=== PATIENT | female | born 1935 | race Caucasian/White ===

== ENCOUNTER 2016-09-11 21:55 | Emergency (ER) | payer MEDICARE ==
[2016-09-11] MEDS ORDERED: DIPH,PERTUS(ACELL)TETVAC-LF 0.5 ML VIAL IM ONE (22:38)
--- NOTE | 2016-09-11 22:42 | ED ---
General Adult HPI - General Chief complaint: Extremity Injury, Upper Stated complaint: fall left shoulder injury Time Seen by Provider: 09/11/16 22:28 Source: patient, RN notes reviewed Mode of arrival: ambulatory Limitations: no limitations - History of Present Illness Initial comments: This is a 81-year-old female presents with left shoulder pain after a fall that happened this evening. Patient states she hit her shoulder on a countertop in her home. Patient did not her head or lose consciousness. Patient denies any neck or back pain. Patient is able ambulate without difficulty and patient denies any headache, nausea/vomiting. Patient states the pain is worse with flexion and abduction of the left upper extremity but patient denies any elbow pain. Patient denies any pain with flexion at the left elbow. Patient denies any numbness/weakness or tingling. Patient also has a laceration to the left ring finger. Patient states she caught her finger on a plate when she fell. Patient is not on any anticoagulants. Patient is not up-to-date on her tetanus shot. Patient denies any recent fever, chills, shortness breath, chest pain, abdominal pain, diarrhea, back pain, numbness, tingling, hematuria, or visual changes, or any other complaints. - Related Data Home Medications Medication Instructions Recorded Confirmed Ipratropium-Albuterol Nebulize 3 ml IH QID 07/03/14 07/03/14 [Duoneb 0.5 mg-3 mg/3 ml Soln] Sulfamethox-Tmp 800-160Mg [Bactrim 1 each PO Q12HR 07/03/14 07/03/14 DS 800-160 mg] Tiotropium Braggs [Spiriva] 07/03/14 07/03/14 Previous Rx's Medication Instructions Recorded Budesonide-Formot 160-4.5 Mcg 2 puff INHALATION BID #1 inhaler 07/07/14 [Symbicort 160-4.5 Mcg Inhaler] Nicotine 21Mg/24Hr Patch [Habitrol] 1 patch TRANSDERM DAILY #14 patch 07/07/14 predniSONE 10 mg PO DIRECTED #24 tab 07/07/14 Cephalexin [Keflex] 500 mg PO Q12HR 5 Days 09/11/16 HYDROcodone/APAP 5-325MG [Eden 1 tab PO Q6HR #12 tab 09/11/16 5-325] Allergies Allergy/AdvReac Type Severity Reaction Status Date / Time No Known Allergies Allergy Verified 09/11/16 22:07 Review of Systems ROS Statement: Those systems with pertinent positive or pertinent negative responses have been documented in the HPI. ROS Other: All systems not noted in ROS Statement are negative. Past Medical History Past Medical History: COPD Additional Past Medical History / Comment(s): OTHER HX: CHRONIC BACK PAIN. History of Any Multi-Drug Resistant Organisms: None Reported Past Surgical History: Tonsillectomy, Tubal Ligation Past Anesthesia/Blood Transfusion Reactions: No Reported Reaction Additional Past Anesthesia/Blood Transfusion Reaction / Comment(s): NEVER RECIEVED BLOOD. Past Psychological History: No Psychological Hx Reported Additional Psychological History / Comment(s): PT LIVES IN HER HOME WITH GROWN GRANDDAUGHTER AND GRANDSON AND A STEP-SON. . SHE IS ACTIVE AND BABYSITS OTHER GRANDCHILDREN. 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 Smoking Status: Current every day smoker Past Alcohol Use History: None Reported Past Drug Use History: None Reported - Past Family History Father Additional Family Medical History / Comment(s): FATHER HAD A HEART MURMUR. HE IN HIS MID 60'S. Mother Family Medical History: Congestive Heart Failure (CHF), Dementia, Myocardial Infarction (ND) Additional Family Medical History / Comment(s): MOTHER IN HER MID 60'S. General Exam - General Exam Comments Initial Comments: General: The patient is awake and alert, in no distress, and does not appear acutely ill. Neck: The neck is supple, there is no tenderness or JVD. No cervical midline tenderness. Cardiovascular: There is a regular rate and rhythm. No murmur, rub or gallop is appreciated. Respiratory: Lungs are clear to auscultation, respirations are non-labored, breath sounds are equal. No wheezes, stridor, rales, or rhonchi. Musculoskeletal: There is swelling to the anterior posterior aspects of the left shoulder. There is no tenderness to palpation over the left clavicle or over the left humerus or over the left elbow. Patient is able to flex and extend at the left elbow joint. Patient has limited range of motion in the left shoulder with flexion and abduction of the left upper extremity due to pain. Strength 5/5 and Sensation intact. Radial pulses 2+ bilaterally. Capillary refill is less than 2 seconds. Neurological: A&O x 3. CN II-XII intact, There are no obvious motor or sensory deficits. Coordination appears grossly intact. Speech is normal. Skin: There is an abrasion with skin flap to the pad of the fourth digit of the left hand. Skin is warm and dry and no rashes or lesions are noted. Psychiatric: Normal mood and affect. Limitations: no limitations Course Vital Signs 09/11/16 22:03 Temperature 98.3 F Pulse Rate 103 H Respiratory 20 Rate Blood Pressure 147/74 O2 Sat by Pulse 95 Oximetry Procedures - Procedures Initial comment: The skin was anesthetized with 1% lidocaine. The laceration was then cleansed and irrigated with normal saline. The wound was inspected, and there was no evidence of injury to deep structures. No foreign body was noted in the wound. A total of 7 skin sutures were placed utilizing 5-0 ethilon. Laceration is approx 1.5 cm. patient tolerated procedure well. Medical Decision Making - Medical Decision Making This is a 81-year-old female presents left shoulder pain after fall. Patient also has a laceration to the fourth digit left hand. On physical exam There is swelling to the anterior posterior aspects of the left shoulder. There is no tenderness to palpation over the left clavicle or over the left humerus or over the left elbow. Patient is able to flex and extend at the left elbow joint. Patient has limited range of motion in the left shoulder with flexion and abduction of the left upper extremity due to pain. Strength 5/5 and Sensation intact. Radial pulses 2+ bilaterally. Capillary refill is less than 2 seconds. There is a laceration with skin flap to the pad of the fourth digit of the left hand. patient received a tetanus shot in the today. X-ray left shoulder was done and reviewed showing: #1 acute comminuted avulsion type fracture of greater tuberosity of left humerus. #2 possible old fracture changes in the left glenoid fossa. #3 [id number]-[id number] degenerative changes in the left glenohumeral and left acromioclavicular joint. Report read by Dr. Olvera. The skin was anesthetized with 1% lidocaine. The laceration was then cleansed and irrigated with normal saline. The wound was inspected, and there was no evidence of injury to deep structures. No foreign body was noted in the wound. A total of 7 skin sutures were placed utilizing 5-0 ethilon. Laceration is approx 1.5 cm. patient tolerated procedure well. I discussed that sutures need to be removed in 8-10days. I discussed that rinsing and showering are okay but to avoid submerging the wound in water. I discussed use of topical Neosporin. Please finish entrie course of antibiotics to prevent infection. I discussed rest, ice, elevate, and use sling for support while up. Please stay nonweightbearing to the left upper extremity. Please use Eden as prescribed for pain. Please follow up with orthopedics as soon as possible. I discussed return parameters. Please follow up with PCP in 1-2 days or return to the [facility] for any worsening symptoms or for any further concerns. I discussed return parameters. patient was receptive to this plan and patient will be discharged home. I discussed this case with attending physician Dr. Martins and he agrees with plan as stated above. patient had a ride home from her grandson. Disposition Clinical Impression: Laceration, Fracture, humerus, great tuberosity Disposition: HOME SELF-CARE Condition: Good Instructions: Proximal Humerus Fracture (ED) Additional Instructions: Please have sutures be removed in 8-10days. Rinsing and showering are okay but to avoid submerging the wound in water. May use topical Neosporin. Please finish entrie course of antibiotics to prevent infection. Rest, ice, elevate, and use sling for support while up. Please stay nonweightbearing to the left upper extremity. Please use Eden as prescribed for pain. Please follow up with orthopedics as soon as possible. I discussed return parameters. Please follow up with PCP in 1-2 days or return to the [facility] for any worsening symptoms or for any further concerns. Prescriptions: Cephalexin [Keflex] 500 mg PO Q12HR 5 Days HYDROcodone/APAP 5-325MG [Eden 5-325] 1 tab PO Q6HR #12 tab Referrals: None,Stated [Primary Care Provider] - 1-2 days Dilma Michel MD [STAFF PHYSICIAN] - 1-2 days Octavio Gallegos MD [STAFF PHYSICIAN] - 1-2 days Time of Disposition: 23:19
--- NOTE | 2016-09-11 22:44 | XR ---
EXAMINATION TYPE: XR shoulder complete LT DATE OF EXAM: 09/11/2016 10:27 PM CLINICAL HISTORY: History of fall today left shoulder pain COMPARISON: Chest x-ray 07/03/2014 TECHNIQUE: Three views of the left shoulder are obtained. FINDINGS: There is evidence of acute comminuted slightly displaced avulsion type fracture of greater tuberosity of left proximal humerus. Left glenohumeral joint showed mild degenerative changes without definite acute fracture. There is so mewhat bone density superimposing the left glenohumeral joint in the AP view is probably related to o ld fracture changes. Left acromioclavicular joint showed mild degenerative changes. Surrounding soft tissue swelling is noted.. Visualized lung fuentes and ribs on the left side of the chest appear grossly unremarkable. IMPRESSION: 1. Acute comminuted avulsion-type fracture of greater tuberosity of left humerus. 2. Possible old fracture changes in the left glenoid fossa. 3. Mild to moderate degenerative changes in the left glenohumeral and left acromioclavicular joint.
[2016-09-11] MEDS ORDERED: HYDROcodone/APAP 5-325MG 1 EACH TAB PO STA (23:19)
[2016-09-11 23:39] VITALS: BP 121/73; PULSE 92; RESP 16; TEMP 98.4
== END 2016-09-11 23:38 | disposition home or self-care (01) ==
LOC: EC 21:55
DX: S42.252A Displaced fracture of greater tuberosity of left humerus, initial encounter for closed fracture (principal); S61.215A Laceration without foreign body of left ring finger without damage to nail, initial encounter; J44.9 Chronic obstructive pulmonary disease, unspecified; F17.200 Nicotine dependence, unspecified, uncomplicated; Z23 Encounter for immunization; Z79.899 Other long term (current) drug therapy; W18.00XA Striking against unspecified object with subsequent fall, initial encounter
CPT/HCPCS: 12001; 90471; 90715; 99283

== ENCOUNTER → 2020-01-12 | Outpatient (CLI) | payer MEDICARE ==
[2020-01-12 15:06] LABS: Basophils # (A) 0.1 k/uL (0-0.2); Basophils % (A) 1 %; Eosinophils # (A) 0.2 k/uL (0-0.7); Eosinophils % (A) 3 %; HCT 43.2 % (34.0-46.0); HGB 14.1 gm/dL (11.4-16.0); Lymphocytes # (A) 1.6 k/uL (1.0-4.8); Lymphocytes % (A) 16 %; MCH 30.6 pg (25.0-35.0); MCHC 32.5 g/dL (31.0-37.0); MCV 94.1 fL (80.0-100.0); Mean Platelet Volume 7.7; Monocytes # (A) 0.7 k/uL (0-1.0); Monocytes % (A) 7 %; Neutrophils # (A) 6.9 k/uL (1.3-7.7); Neutrophils % (A) 72 %; Platelet Count 207 k/uL (150-450); RBC 4.59 m/uL (3.80-5.40); RDW 14.5 % (11.5-15.5); WBC 9.7 k/uL (3.8-10.6)
[2020-01-12 18:51] LABS: African American GFR (CKD) 93.5 (60.0-200.0); Albumin 4.5 g/dL (3.80-4.90); Albumin/Globulin Ratio 1.8 (1.60-3.17); Anion Gap 9.7 mmol/L (4.00-12.00); BUN/Creat Ratio 22.86 Ratio (12.00-20.00); Calcium 9.6 mg/dL (8.7-10.3); Carbon Dioxide 28.3 mmol/L (21.6-31.8); Chol/HDL Ratio 2.11; Globulin 2.5 g/dL (1.6-3.3); Non-African American GFR(CKD) 80.7 (60.0-200.0); Potassium 4.6 mmol/L (3.5-5.5); Total Bilirubin 0.5 mg/dL (0.2-1.2)
[2020-01-12 19:00] LABS: T4, Free (Free Thyroxine) 1.3 ng/dL (0.80-1.80)
== END | disposition home or self-care (01) ==
LOC: LABWHC1 13:51
PROVIDERS: ATTEND Internal Medicine Critical Care Medicine
DX: Z00.00 Encounter for general adult medical examination without abnormal findings (principal)
CPT/HCPCS: 36415; 80053; 80061; 82306; 84439; 84443; 85025

== ENCOUNTER → 2020-01-12 | Outpatient (CLI) | payer MEDICARE | END | disposition home or self-care (01) | LOC: LABWHC1 14:47 | PROVIDERS: ATTEND Internal Medicine Critical Care Medicine | DX: Z53.9 Procedure and treatment not carried out, unspecified reason (principal) ==

== ENCOUNTER → 2020-04-28 | Outpatient (CLI) | payer MEDICARE ==
--- NOTE | 2020-04-28 14:56 | BD ---
EXAMINATION TYPE: Axial Bone Density DATE OF EXAM: 04/28/2020 POOR HISTORIAN COMPARISON: 10.14.2014 CLINICAL HISTORY: 84 YR OLD FEMALE.....ICD-10 CODE: M81.0 KNOWN OSTEOPOROSIS Height: 59.2 Weight: 89 FRAX RISK QUESTIONS: Family History (Parent hip fracture): UNKNOWN History of Fracture in Adulthood: YES Current Tobacco Use: YES RISK FACTORS HISTORY OF: HX OF SHOULDER FX, AT AGE 83 History of Wrist Fracture: BOTH WRISTS A YOUTH Diet low in dairy products/other sources of calcium: YES A BIT Postmenopausal woman: NOTHING UNUSUAL, POOR HISTORIAN Lost more than 2 inches in height since high school: YES Frequent falls: YES Poor Health: FRAIL Hyperparathyroidism: UNKNOWN Adrenal Insufficiency: UNKNOWN MEDICATIONS: Prednisone or other steroids: YES, FOR COPD How Long: MANY YRS Osteoporosis Medications: YES, FOSAMAX Additional Medications: REFLUX MEDS, VIT D AND CALCIUM Additional History: REFLUX, BREATHING TROUBLE EXAM MEASUREMENTS: Bone mineral densitometry was performed using the [employer]. Bone mineral density as measured about the Lumbar spine is: ----- L1-L4(G/cm2): 1.395 T Score Values are as follows: ----- L1: 0.3 ----- L2: 2.3 ----- L3: 2.8 ----- L4: 1.7 ----- L1-L4: 1.8 Bone mineral density has: Increased 15.8% since study of: 10.14.2014 Bone mineral density about the R hip (g/cm2): 0.669 Bone mineral density about the L hip (g/cm2): 0.634 T Score values are as follows: -----R Neck: -2.6 -----L Neck: -3.0 -----R Total: -2.7 -----L Total: -3.0 Bone mineral density has: Increased 0.5% since study of: 10.14.2014 FRAX%s: THERE IS A 35.8%CHANCE FOR MAJOR OSTEOPOROTIC FX AND A 22.7% FOR HIP.....PROBABILITY FOR FX IN 10 YRS TIME IMPRESSION: Osteoporosis (T Score less than -2.5). There is increased fracture risk and therapy is usually indicated based on age. Re-Screen 1-2 years. NOTE: T-SCORE=SD OF THE YOUNG ADULT MEAN.
== END | disposition home or self-care (01) ==
LOC: RADBDWWP 12:41
PROVIDERS: ATTEND Internal Medicine Critical Care Medicine
DX: M81.0 Age-related osteoporosis without current pathological fracture (principal)
CPT/HCPCS: 77080

== ENCOUNTER → 2021-10-14 | Outpatient (CLI) | payer MEDICARE ==
[2021-10-14 19:11] LABS: Basophils % (A) 1.3 %; Eosinophils # (A) 0.22 X 10*3/uL (0.04-0.35); Eosinophils % (A) 2.9 %; HGB 12.2 g/dL (12.0-15.0); Immature Grans, Automated 0.4 %; Lymphocytes # (A) 1.39 X 10*3/uL (0.90-5.00); Lymphocytes % (A) 18.1 %; MCH 28.8 pg (27.0-32.0); MCHC 30.5 g/dL (32.0-37.0); MCV 94.3 fL (80.0-97.0); Mean Platelet Volume 10.9 fL (9.5-12.2); Monocytes # (A) 0.88 X 10*3/uL (0.20-1.00); Monocytes % (A) 11.4 %; NRBC Per 100 WBC 0 /100 WBCS (0.0-0.0); Neutrophils # (A) 5.07 X 10*3/uL (1.80-7.70); Neutrophils % (A) 65.9 %; Platelet Count 234 X 10*3/uL (140-440); RBC 4.24 X 10*6/uL (4.10-5.20); RDW 15.5 % (11.5-14.5); WBC 7.69 X 10*3/uL (4.50-10.00)
[2021-10-14 23:30] LABS: ALT 14 U/L (8-44); AST 20 U/L (13-35); African American GFR (CKD) 94.4 (60.0-200.0); Albumin 3.9 g/dL (3.8-4.9); Albumin/Globulin Ratio 1.13 (1.60-3.17); Alkaline Phosphatase 66 U/L (41-126); BUN/Creat Ratio 20.55 Ratio (12.00-20.00); Blood Urea Nitrogen 13.4 mg/dL (9.0-27.0); Calcium 9.4 mg/dL (8.7-10.3); Carbon Dioxide 26.6 mmol/L (20.0-27.5); Chloride 101 mmol/L (96-109); Chol/HDL Ratio 2.33 Ratio; Globulin 3.4 g/dL (1.6-3.3); Glucose 86 mg/dL (70-110); Non-African American GFR(CKD) 81.4 (60.0-200.0); Potassium 4.1 mmol/L (3.5-5.5); Sodium 139 mmol/L (135-145); Total Protein 7.3 g/dL (6.2-8.2); VLDL Calculation 17.82 mg/dL (5.00-40.00)
== END | disposition home or self-care (01) ==
LOC: LABWHC1 12:01
PROVIDERS: ATTEND Internal Medicine Critical Care Medicine
DX: Z00.00 Encounter for general adult medical examination without abnormal findings (principal)
CPT/HCPCS: 36415; 80053; 80061; 82306; 84439; 84443; 85025

== ENCOUNTER → 2022-06-21 | Outpatient (CLI) | payer MEDICARE ==
[2022-06-21 12:03] LABS: African American GFR (CKD) >90 (>60 ml/min/1.73 sqM); Blood Urea Nitrogen 13 mg/dL (7-17); Non-African American GFR(CKD) 80 (>60 ml/min/1.73 sqM)
--- NOTE | 2022-06-21 13:52 | CT ---
EXAMINATION TYPE: CT chest w con DATE OF EXAM: 06/21/2022 COMPARISON: 09/30/2014 HISTORY: Abnormal lung field CT DLP: 199 mGycm Automated exposure control for dose reduction was used. CONTRAST: CT scan of the chest is performed with IV Contrast, patient injected with 100 mL of Isovue 300. FINDINGS: LUNGS: There is a new spiculated mass left upper lobe measuring 3.8 x 2.5 x 3.3 cm with mild pleural extension and compatible with malignancy until proven otherwise. The lungs are free of additional mas s or distinct pulmonary nodule. Hyperinflation compatible with COPD with mild upper lobe emphysematou s change. MEDIASTINUM: Anterior mediastinal nodule measuring 1.4 cm compatible with adenopathy. AP window adeno jarocho measuring 1.2 cm. No additional enlarged lymph node seen. Large fixed hiatal hernia. Thoracic a ankit is of normal caliber. The heart is not enlarged. UPPER ABDOMEN: No significant abnormality appreciated. OTHER: No additional significant abnormality is seen. IMPRESSION: 1. Spiculated left upper lobe mass compatible with malignancy until proven otherwise. Mediastinal jamar nopathy as discussed.
== END | disposition home or self-care (01) ==
LOC: RADCTMAIN 10:58
PROVIDERS: ATTEND Internal Medicine Critical Care Medicine
DX: R91.8 Other nonspecific abnormal finding of lung field (principal); R59.0 Localized enlarged lymph nodes
CPT/HCPCS: 82565; 84520; 71260; 36415; Q9967

== ENCOUNTER 2022-07-13 10:59 | Day surgery (SDC) | payer MEDICARE ==
[2022-07-10 16:10] VITALS: BMI 16.2
[~2022-07-13 10:59] MED LIST: LACTATED RINGERS 1,000 ML IV SCH; LIDOCAINE 1% (10MG/ML) FOR IV START INTRADERMA PRN; LIDOCAINE VISCOUS 300 MG/15 ML CUP MUCOUS MEM ONE; SODIUM CHLORIDE 0.9% 1,000 ML IV SCH
--- NOTE | 2022-07-13 12:30 | CT ---
EXAMINATION TYPE: CT Chest zayra Irizarry Protocol DATE OF EXAM: 07/13/2022 COMPARISON: 06/21/2022 HISTORY: pre bronchial navigation CT DLP: [address] of the chest was performed with lung and mediastinal window settings submitted. The la ck of contrast limits evaluation of the vascular, mediastinal and parenchymal structures including th e upper abdomen. LUNGS: Left upper lobe spiculated mass is again noted and measures 3.5 x 2.4 x 2.8 cm versus previous measurement of 3.8 x 2.5 x 3.3 cm. Mild pleural extension noted. No additional nodules or masses see n. Moderate hyperinflation compatible with COPD. Left apical scarring. MEDIASTINUM/DESI: Thoracic aorta is of normal caliber with limited evaluation given lack of contrast . The heart is not enlarged. No evidence for mediastinal mass. Prevascular space and AP window mary opathy persists. UPPER ABDOMEN: Moderate to large fixed hiatal hernia. OTHER: No significant other abnormality. IMPRESSION: 1. Left upper lobe mass and mediastinal adenopathy as noted.
[2022-07-13] MEDS ORDERED: PROPOFOL 10 MG/ML 20 ML VIAL IV ONE (12:39)
[2022-07-13] MEDS ORDERED: fentaNYL (PF) 50 MCG/ML 2 ML AMP ONE (12:39)
[2022-07-13] MEDS ORDERED: PHENYLEPHRINE-0.9% NACL SYG 1,000 MCG/10 ML SYRINGE ONE (12:39)
[2022-07-13] MEDS ORDERED: SUCCINYLCHOLINE CHLORIDE 200 MG/10 ML VIAL IV ONE (12:39)
--- NOTE | 2022-07-13 13:34 | P.PCN ---
Date of Procedure: 07/13/22 Operative Findings: Preoperative Diagnosis: Left upper lobe lobe mass Postoperative Diagnosis: Left upper lobe mass Procedure(s) Performed: Flexible bronchoscopy navigation bronchoscopy Transbronchial biopsy of the left upper lobe mass, transbronchial brushing of the left upper lobe mass, bronchial lavage of the left upper lobe mass Anesthesia: GETA Operative Findings: Surgeon: Aline Degroot MD Radio Interference Investigator #1: Alejandra Bartlett Estimated Blood Loss (ml): 0 Pathology: other Condition: stable Disposition: same day Operative Findings: the patient is a 64-year-old male with a left upper lobe mass. Patient has advanced COPD with poor baseline performance and functional status. This was done for diagnostic purposes. The patient is scheduled to undergo navigation bronchoscopy. A CAT scan of the chest was done for mapping purposes using the [employer] protocol. The images was uploaded into the system and the left upper mass was identified. Appropriate mapping was done. All of this information was then transferred to a USB and later on into the [employer] navigation tower. After obtaining the consent the patient was taken to the OR suite he was intubated and put on MV by anesthesia then the scope was advanced to the ET tube until the Trachea was seen and it was normal and then the ashley appears normal then the scope advanced to the left main and MELVINA LB1-LB3 were seen and no endobronchial lesions were seen then the scope advanced to the lingula and the LB4 and LB5 were seen and no endobronchial lesions were seen the scope retracted and advanced to the left lower lobes LB6 to LB12 were seen one by one and no endobronchial lesions, then the scope was retracted back to the ashley and advanced to the Right main and RUL RB1 and RB2 and RB3 were seen one by one and no endobronchial lesions were seen the scope then retracted and advanced to the BI and RML RB4 and RB5 were seen and no endobronchial lesions were seen then it was retracted and advanced to the RLL RB6 to RB12 were seen one by one and no endobronchial lesions. Using navigation guidance, the flexible bronchoscope was advanced to the right upper lobe. Transbronchial biopsy of the left upper lobe mass was done in multiple passes were obtained. Following that, performed transbronchial brushing of the left upper lobe mass using a triple brush, and a bronchial lavage of th left upper lobe was also done with total of 80 mL of fluid was infused and 20 mL was aspirated without any major difficulties. The procedure was terminated. The bronchoscope was removed. The patien will be ed and following that the patient was transferred to recovery in a stable condition. No bleeding was encountered.
[2022-07-13 13:49] VITALS: TEMP 97.4
[2022-07-13 14:03] VITALS: RESP 16
[2022-07-13 15:28] VITALS: BP 101/60; PULSE 85
--- NOTE | 2022-07-13 16:16 | XR ---
EXAMINATION TYPE: XR chest 1V portable DATE OF EXAM: 07/13/2022 COMPARISON: Chest CT June 21, 2022 HISTORY: Bronchoscopy with biopsies. TECHNIQUE: Single AP portable frontal upright view of the chest is obtained. FINDINGS: Background chronic emphysematous change with increased left upper lung opacity now identif ied suggesting hemorrhage and/or edema. No pneumothorax seen. Oval mass on recent CT less well seen o n current study. Right lung remains clear. The cardiac silhouette size remains within normal limits. The osseous structures are demineralized. IMPRESSION: As above.
[2022-07-13 19:21] LABS: Appearance,BF Bloody
== END 2022-07-13 15:52 | disposition home or self-care (01) ==
LOC: ORWHC2ENDO 10:59
PROVIDERS: ATTEND Internal Medicine Critical Care Medicine
DX: R91.8 Other nonspecific abnormal finding of lung field (principal); J44.9 Chronic obstructive pulmonary disease, unspecified; M81.0 Age-related osteoporosis without current pathological fracture; K44.9 Diaphragmatic hernia without obstruction or gangrene
CPT/HCPCS: 89050; 87252; 87070; 87205; 87116; 87102; 87206; 71045; 71250; 31625; 31624; 31627; J0330; J3010; J2370; J2704; 87496; 87498; 87502; 87529; 87634; 87798

== ENCOUNTER → 2022-07-15 | Outpatient (CLI) | payer MEDICARE ==
--- NOTE | 2022-07-18 08:42 | PE ---
EXAMINATION TYPE: PET CT fusion skull to thigh DATE OF EXAM: 07/15/2022 COMPARISON: Chest CT June 21, 2022 HISTORY: Solitary pulmonary nodule, abnormal CT. Recent bronchoscopy with sampling. TECHNIQUE: Following the intravenous administration of 11.9 mCi of F-18 FDG, whole body images are p erformed from the skull base to the midthigh. Images are reviewed on the computer in the coronal, ax ial, and sagittal planes. Reconstructed rotating images are created on independent workstation and r eviewed on the computer. A localization and attenuation correction CT is performed in conjunction w ith the PET scan. Blood glucose level equals 88 SCAN: Initial Scan FINDINGS: SKULL BASE AND NECK: No areas of abnormal hypermetabolic uptake. CHEST, MEDIASTINUM, AND HILAR REGION: Background moderate to advanced underlying emphysematous change s are redemonstrated. Persistent posterior left upper lobe spiculated 4.0 x 2.7 cm mass has abnormal hypermetabolic uptake, Max SUV is 6.08 on axial image 61. New areas of groundglass opacity and consol idation with mild hypermetabolic uptake likely reflect areas of hemorrhage and/or inflammation relate d to recent bronchoscopy and sampling. Persistent prominent left paracarinal 2.4 x 1.8 cm lymph node image 70, max SUV is 2.3 to. Mild hyper metabolic uptake in the near 1.0 cm inferior left hilar lymph node axial image 83, max SUV is 3.16 at this level. No additional areas of abnormal hypermetabolic uptake. ABDOMEN AND PELVIS: Patient has little intra-abdominal fat. No adrenal masses. Normal excretion. No a bnormal hypermetabolic uptake. OSSEOUS STRUCTURES: No abnormal hypermetabolic uptake. OTHER CT: Exaggerated curvature to the spine. Grade 1 retrolisthesis L2 on L3, L3 on L4, and L4 on L5 . Severe three-vessel coronary artery calcification. Moderate size hiatal hernia is noted. Moderate to severe calcified plaque of the aorta extends into branch vessels. Scattered pelvic phlebo liths. IMPRESSION: Malignancy posterior inferior left upper lobe with nonspecific anterior left hilar adenop athy. No distal metastatic disease.
== END | disposition home or self-care (01) ==
LOC: RADPETMAIN 11:12
PROVIDERS: ATTEND Internal Medicine Critical Care Medicine
DX: C34.12 Malignant neoplasm of upper lobe, left bronchus or lung (principal); R91.1 Solitary pulmonary nodule; R59.0 Localized enlarged lymph nodes
CPT/HCPCS: 78815; A9552

== ENCOUNTER 2024-11-22 06:35 | Inpatient (IN) | payer MEDICARE ==
[2024-11-22] MEDS: IPRATROPIUM-ALBUTEROL 3 ML NEB INHALATION STA ×2 (06:57→08:57)
--- NOTE | 2024-11-22 06:59 | ED ---
SOB HPI - General Chief Complaint: Shortness of Breath Stated Complaint: KEVIN Time Seen by Provider: 11/22/24 06:58 Source: patient, family (POA), EMS, RN notes reviewed Mode of arrival: EMS Limitations: no limitations - History of Present Illness Initial Comments: 89-year-old female with a past medical history significant of COPD and lung cancer not currently on chemotherapy or radiation presenting to the emergency room via EMS for evaluation of difficulty in breathing. Patient for the past couple of hours she has felt extremely short of breath. Per EMS, patient was tripoding upon their arrival. Family reports patient does not wear nasal cannula oxygen at home. Dr. Degroot recommends home O2 use but patient refuses, per family family reports patient coughs up phlegm very often. Patient does admit to orthopnea and sleeps in a recliner as she cannot breathe when laying down. She denies any peripheral edema. She does admit to exertional dyspnea and dyspnea at rest. Patient is a current everyday smoker smoking approximately 1 pack of cigarettes per day. Patient does state she uses Spiriva at home. Patient did receive albuterol nebulizer in the ambulance. Patient denies any dizziness, lightheadedness, fevers, chills, cough, congestion, chest discomfort or other complaints at this time. Patient couple days ago she did fall as her legs "gave out" given her weakness. Patient denies head injury, loss of consciousness or blood thinner use. Patient denies any dizziness, lightheadedness prior to fall. Family reports the fall was witnessed and denies head injury. - Related Data Home Medications Medication Instructions Recorded Confirmed Ipratropium-Albuterol Nebulize 3 ml INHALATION RT-QID 07/03/14 11/22/24 [Duoneb 0.5 mg-3 mg/3 ml Soln] Previous Rx's Medication Instructions Recorded predniSONE [Deltasone] 40 mg PO DAILY 5 Days #10 tab 11/22/24 Allergies Allergy/AdvReac Type Severity Reaction Status Date / Time No Known Allergies Allergy Verified 11/22/24 09:41 Review of Systems ROS Statement: Those systems with pertinent positive or pertinent negative responses have been documented in the HPI. ROS Other: All systems not noted in ROS Statement are negative. Past Medical History Past Medical History: COPD Additional Past Medical History / Comment(s): OTHER HX: CHRONIC BACK PAIN. History of Any Multi-Drug Resistant Organisms: None Reported Past Surgical History: Tonsillectomy, Tubal Ligation Past Anesthesia/Blood Transfusion Reactions: No Reported Reaction Additional Past Anesthesia/Blood Transfusion Reaction / Comment(s): NEVER RECIEVED BLOOD. Past Psychological History: No Psychological Hx Reported Smoking Status: Current every day smoker Past Alcohol Use History: None Reported Past Drug Use History: None Reported - Past Family History Father Additional Family Medical History / Comment(s): FATHER HAD A HEART MURMUR. HE IN HIS MID 60'S. Mother Family Medical History: Congestive Heart Failure (CHF), Dementia, Myocardial Infarction ([place]) Additional Family Medical History / Comment(s): MOTHER IN HER MID 60'S. General Exam Limitations: no limitations General appearance: alert, in no apparent distress Respiratory exam: Present: wheezes (mild expriatory), accessory muscle use (minor- conservation dyspnea), decreased breath sounds (all lung fuentes) Cardiovascular Exam: Present: regular rate, normal rhythm, normal heart sounds. Absent: systolic murmur, diastolic murmur, rubs, gallop, clicks Extremities exam: Present: normal inspection, full ROM, normal capillary refill. Absent: tenderness, pedal edema, joint swelling, calf tenderness Neurological exam: Present: alert, oriented X3, CN II-XII intact Skin exam: Present: warm, dry, intact, normal color. Absent: rash Course Vital Signs 11/22/24 11/22/24 11/22/24 06:37 06:46 06:53 Temperature 97.1 F L Pulse Rate 94 80 Respiratory 24 24 Rate Blood Pressure 110/85 O2 Sat by Pulse 98 Oximetry 11/22/24 11/22/24 11/22/24 07:03 08:25 08:30 Temperature Pulse Rate 84 Respiratory 20 Rate Blood Pressure O2 Sat by Pulse 95 90 L Oximetry 11/22/24 11/22/24 11/22/24 08:31 08:57 09:07 Temperature Pulse Rate 80 82 Respiratory 18 Rate Blood Pressure O2 Sat by Pulse 94 L Oximetry 11/22/24 11/22/24 11/22/24 10:00 12:05 12:17 Temperature 97.8 F Pulse Rate 76 79 80 Respiratory 16 Rate Blood Pressure 95/59 O2 Sat by Pulse 97 Oximetry - Reevaluation(s) Reevaluation #1: 11/22/24 08:07 Patient reevaluated. No signs of acute distress. 11/22/24 10:44 Case discussed with [facility] physician, Dr. Ribeiro. Discharge concerns discussed, given patient increase shortness of breath and weakness. He accepts observation admission. Medical Decision Making - Medical Decision Making Was pt. sent in by a medical professional or institution (, [facility], [facility], urgent care, hospital, or snf...) When possible be specific @ -No Did you speak to anyone other than the patient for history (EMS, parent, family, police, friend...)? What history was obtained from this source @ -EMS aiding in HPI past medical history. Family at bedside also aidng in HPI. Did you review nursing and triage notes (agree or disagree)? Why? @ -I reviewed and agree with nursing and triage notes Were old charts reviewed (outside hosp., previous admission, EMS record, old EKG, old radiological studies, urgent care reports/EKG's, snf records)? Report findings @ -No old charts were reviewed Differential Diagnosis (chest pain, altered mental status, abdominal pain women, abdominal pain men, vaginal bleeding, weakness, fever, dyspnea, syncope, headache, dizziness, GI bleed, back pain, seizure, CVA, palpatations, mental health, musculoskeletal)? @ -Differential Dyspnea: Coronary syndrome, arrhythmia, tamponade, asthma, COPD, pulmonary embolism, pneumonia, pneumothorax, pulmonary effusion, anaphylaxis, diabetic ketoacidosis, flailed chest, pulmonary contusion, diaphragmatic rupture, anemia, neuromuscular, this is not meant to be an all- inclusive list. EKG interpreted by me (3pts min.). @ -As above X-rays interpreted by me (1pt min.). @ -CXR showing left upper lobe mass. Recommending CT. CT interpreted by me (1pt min.). @ -CT angio chest showed left upper lobe mass suspicious of neoplasm. No acute pulmonary embolism U/S interpreted by me (1pt. min.). @ -None done What testing was considered but not performed or refused? (CT, X-rays, U/S, labs)? Why? @ -None What meds were considered but not given or refused? Why? @ -None Did you discuss the management of the patient with other professionals (professionals i.e. , [facility], [facility], lab, RT, psych nurse, licensed clinical social worker, barrel reamer, teacher, college service officer, casework supervisor)? Give summary @ -Yes, case discussed with [facility] physician, Dr. Ribeiro for admission. Was smoking cessation discussed for >3mins.? @ -No Was critical care preformed (if so, how long)? @ -No Were there social determinants of health that impacted care today? How? (Homelessness, low income, unemployed, alcoholism, drug addiction, transport ation, low edu. Level, literacy, decrease access to med. care, residential, rehab)? @ -No Was there de-escalation of care discussed even if they declined (Discuss DNR or withdrawal of care, Hospice)? DNR status @ -No What co-morbidities impacted this encounter? (DM, HTN, Smoking, COPD, CAD, Cancer, CVA, ARF, Chemo, Hep., AIDS, mental health diagnosis, sleep apnea, morbid obesity)? @ -Lung cancer, COPD, dementia Was patient admitted / discharged? Hospital course, mention meds given and route, prescriptions, significant lab abnormalities, going to OR and other pertinent info. @ -Admitted. 89-year-old female presented the ER via EMS for evaluation of shortness of breath. Upon rooming, patient experiencing conversational dyspnea and accessory muscle use. Patient is oxygen saturation 98% on 3 L nasal cannula oxygen. Vitals otherwise acceptable limits. Patient does not typically wear nasal cannula oxygen at home. Laboratory studies unimpressive. Troponin undetectable. BNP 859. Urinalysis with no evidence of infection. Influenza, RSV and COVID-negative. CT angio chest showed no acute evidence of pulmonary embolism. There is a left upper lung mass noted concerning of neoplasm. Patient has known lung cancer and is not currently undergoing chemotherapy or radiation. Patient given nebulizer treatments and started on p.o. prednisone. Patient was attempted to be ambulated in the emergency department and continued complaining of worsening shortness of breath with movement. Admission was considered and discussed at that time for observation of COPD exacerbation. is was accepted by [facility] physician, Dr. Ribeiro. Pulmonology on consult. Patient and patient's family agreeable for admission. Case discussed with ED attending, Dr. Martins. Undiagnosed new problem with uncertain prognosis? @ -No Drug Therapy requiring intensive monitoring for toxicity (Heparin, Nitro, Insulin, Cardizem)? @ -No Were any procedures done? @ -No Diagnosis/symptom? @ -COPD exacerbation Acute, or Chronic, or Acute on Chronic? @ -Acute Uncomplicated (without systemic symptoms) or Complicated (systemic symptoms)? @ -Complicated Side effects of treatment? @ -No Exacerbation, Progression, or Severe Exacerbation? @ -No Poses a threat to life or bodily function? How? (Chest pain, [place], NH, pneumonia, PE, COPD, DKA, ARF, appy, cholecystitis, CVA, Diverticulitis, Homicidal, Suicidal, threat to staff... and all critical care pts) @ -yes patient has cancer. - Lab Data Result diagrams: 11/22/24 06:54 11/22/24 06:54 Lab Results 11/22/24 11/22/24 11/22/24 Range/Units 06:54 06:54 06:54 WBC 7.86 (4.50-10.00) 10*3/uL RBC 4.63 (4.10-5.20) 10*6/uL Hgb 12.6 (12.0-15.0) g/dL Hct 38.9 (37.2-46.3) % MCV 84.0 (80.0-97.0) fL MCH 27.2 (27.0-32.0) pg MCHC 32.4 (32.0-37.0) g/dL Plt Count 245 (140-440) 10*3/uL MPV 9.7 (9.5-12.2) fL Immature Gran % (Auto) 0.3 % Neutrophils % 70.3 % Lymphocytes % 15.4 % Monocytes % 9.5 % Eosinophils % 3.2 % Basophils % 1.3 % Immature Gran # 0.02 (0.00-0.04) 10*3/uL Neutrophils # 5.53 (1.80-7.70) 10*3/uL Lymphocytes # 1.21 (0.90-5.00) 10*3/uL Monocytes # 0.75 (0.20-1.00) 10*3/uL Eosinophils # 0.25 (0.04-0.35) 10*3/uL Basophils # 0.10 (0.00-0.10) 10*3/uL PT 10.3 (10.0-12.5) sec INR 0.9 (<1.2) APTT 24.6 (22.0-30.0) sec Sodium (137-145) mmol/L Potassium (3.5-5.1) mmol/L Chloride (98-107) mmol/L Carbon Dioxide (22-30) mmol/L Anion Gap mmol/L BUN (7-17) mg/dL Creatinine (0.52-1.04) mg/dL Est GFR (CKD-EPI)AfAm (>60 ml/min/1.73 sqM) Est GFR (CKD-EPI)NonAf (>60 ml/min/1.73 sqM) Glucose (74-99) mg/dL Plasma Lactic Acid Jose (0.7-2.0) mmol/L Calcium (8.4-10.2) mg/dL Magnesium (1.6-2.3) mg/dL Total Bilirubin (0.2-1.3) mg/dL AST (14-36) U/L ALT (4-34) U/L Alkaline Phosphatase (38-126) U/L Troponin I (0.000-0.034) ng/mL NT-Pro-B Natriuret Pep pg/mL Total Protein (6.3-8.2) g/dL Albumin (3.5-5.0) g/dL Urine Color Colorless Urine Appearance Clear (Clear) Urine pH 6.5 (5.0-8.0) Ur Specific Thayer 1.013 (1.001-1.035) Urine Protein Negative (Negative) Urine Glucose (UA) Negative (Negative) Urine Ketones Negative (Negative) Urine Blood Negative (Negative) Urine Nitrite Negative (Negative) Urine Bilirubin Negative (Negative) Urine Urobilinogen <2.0 (<2.0) mg/dL Ur Leukocyte Esterase Moderate H (Negative) Urine RBC 1 (0-5) /hpf Urine WBC 7 H (0-5) /hpf Ur Squamous Epith Cells <1 (0-4) /hpf Urine Bacteria Rare H (None) /hpf Urine Mucus Rare H (None) /hpf Influenza Type A (PCR) (Not Detectd) Influenza Type B (PCR) (Not Detectd) RSV (PCR) (Not Detectd) SARS-CoV-2 (PCR) (Not Detectd) 11/22/24 11/22/24 11/22/24 Range/Units 06:54 06:54 06:54 WBC (4.50-10.00) 10*3/uL RBC (4.10-5.20) 10*6/uL Hgb (12.0-15.0) g/dL Hct (37.2-46.3) % MCV (80.0-97.0) fL MCH (27.0-32.0) pg MCHC (32.0-37.0) g/dL Plt Count (140-440) 10*3/uL MPV (9.5-12.2) fL Immature Gran % (Auto) % Neutrophils % % Lymphocytes % % Monocytes % % Eosinophils % % Basophils % % Immature Gran # (0.00-0.04) 10*3/uL Neutrophils # (1.80-7.70) 10*3/uL Lymphocytes # (0.90-5.00) 10*3/uL Monocytes # (0.20-1.00) 10*3/uL Eosinophils # (0.04-0.35) 10*3/uL Basophils # (0.00-0.10) 10*3/uL PT (10.0-12.5) sec INR (<1.2) APTT (22.0-30.0) sec Sodium 132 L (137-145) mmol/L Potassium 4.3 (3.5-5.1) mmol/L Chloride 97 L (98-107) mmol/L Carbon Dioxide 29 (22-30) mmol/L Anion Gap 6 mmol/L BUN 13 (7-17) mg/dL Creatinine 0.53 (0.52-1.04) mg/dL Est GFR (CKD-EPI)AfAm >90 (>60 ml/min/1.73 sqM) Est GFR (CKD-EPI)NonAf 86 (>60 ml/min/1.73 sqM) Glucose 99 (74-99) mg/dL Plasma Lactic Acid Jose 1.2 (0.7-2.0) mmol/L Calcium 9.2 (8.4-10.2) mg/dL Magnesium 1.9 (1.6-2.3) mg/dL Total Bilirubin 0.5 (0.2-1.3) mg/dL AST 23 (14-36) U/L ALT 11 (4-34) U/L Alkaline Phosphatase 57 (38-126) U/L Troponin I <0.012 (0.000-0.034) ng/mL NT-Pro-B Natriuret Pep 859 pg/mL Total Protein 6.7 (6.3-8.2) g/dL Albumin 3.7 (3.5-5.0) g/dL Urine Color Urine Appearance (Clear) Urine pH (5.0-8.0) Ur Specific Thayer (1.001-1.035) Urine Protein (Negative) Urine Glucose (UA) (Negative) Urine Ketones (Negative) Urine Blood (Negative) Urine Nitrite (Negative) Urine Bilirubin (Negative) Urine Urobilinogen (<2.0) mg/dL Ur Leukocyte Esterase (Negative) Urine RBC (0-5) /hpf Urine WBC (0-5) /hpf Ur Squamous Epith Cells (0-4) /hpf Urine Bacteria (None) /hpf Urine Mucus (None) /hpf Influenza Type A (PCR) (Not Detectd) Influenza Type B (PCR) (Not Detectd) RSV (PCR) (Not Detectd) SARS-CoV-2 (PCR) (Not Detectd) 11/22/24 Range/Units 07:55 WBC (4.50-10.00) 10*3/uL RBC (4.10-5.20) 10*6/uL Hgb (12.0-15.0) g/dL Hct (37.2-46.3) % MCV (80.0-97.0) fL MCH (27.0-32.0) pg MCHC (32.0-37.0) g/dL Plt Count (140-440) 10*3/uL MPV (9.5-12.2) fL Immature Gran % (Auto) % Neutrophils % % Lymphocytes % % Monocytes % % Eosinophils % % Basophils % % Immature Gran # (0.00-0.04) 10*3/uL Neutrophils # (1.80-7.70) 10*3/uL Lymphocytes # (0.90-5.00) 10*3/uL Monocytes # (0.20-1.00) 10*3/uL Eosinophils # (0.04-0.35) 10*3/uL Basophils # (0.00-0.10) 10*3/uL PT (10.0-12.5) sec INR (<1.2) APTT (22.0-30.0) sec Sodium (137-145) mmol/L Potassium (3.5-5.1) mmol/L Chloride (98-107) mmol/L Carbon Dioxide (22-30) mmol/L Anion Gap mmol/L BUN (7-17) mg/dL Creatinine (0.52-1.04) mg/dL Est GFR (CKD-EPI)AfAm (>60 ml/min/1.73 sqM) Est GFR (CKD-EPI)NonAf (>60 ml/min/1.73 sqM) Glucose (74-99) mg/dL Plasma Lactic Acid Jose (0.7-2.0) mmol/L Calcium (8.4-10.2) mg/dL Magnesium (1.6-2.3) mg/dL Total Bilirubin (0.2-1.3) mg/dL AST (14-36) U/L ALT (4-34) U/L Alkaline Phosphatase (38-126) U/L Troponin I (0.000-0.034) ng/mL NT-Pro-B Natriuret Pep pg/mL Total Protein (6.3-8.2) g/dL Albumin (3.5-5.0) g/dL Urine Color Urine Appearance (Clear) Urine pH (5.0-8.0) Ur Specific Thayer (1.001-1.035) Urine Protein (Negative) Urine Glucose (UA) (Negative) Urine Ketones (Negative) Urine Blood (Negative) Urine Nitrite (Negative) Urine Bilirubin (Negative) Urine Urobilinogen (<2.0) mg/dL Ur Leukocyte Esterase (Negative) Urine RBC (0-5) /hpf Urine WBC (0-5) /hpf Ur Squamous Epith Cells (0-4) /hpf Urine Bacteria (None) /hpf Urine Mucus (None) /hpf Influenza Type A (PCR) Not Detected (Not Detectd) Influenza Type B (PCR) Not Detected (Not Detectd) RSV (PCR) Not Detected (Not Detectd) SARS-CoV-2 (PCR) Not Detected (Not Detectd) - EKG Data -: EKG Interpreted by Me EKG Comments: EKG taken at 6: 49 showing a sinus rhythm. Artifact present. Ventricular rate 86, WA interval 111, QRS duration at 69, QT/QTc 357/400 - Radiology Data Radiology results: report reviewed, image reviewed Disposition Clinical Impression: COPD exacerbation Disposition: ADMITTED IP TO THIS HOSP Condition: Stable Is patient prescribed a controlled substance at d/c from ED?: No Time of Disposition: 10:45
[2024-11-22] MEDS: predniSONE 20 MG TAB PO STA (07:01)
[2024-11-22 07:29] LABS: Basophils % (A) 1.3 %; Eosinophils # (A) 0.25 10*3/uL (0.04-0.35); Eosinophils % (A) 3.2 %; HCT 38.9 % (37.2-46.3); HGB 12.6 g/dL (12.0-15.0); Lymphocytes # (A) 1.21 10*3/uL (0.90-5.00); Lymphocytes % (A) 15.4 %; MCH 27.2 pg (27.0-32.0); MCHC 32.4 g/dL (32.0-37.0); Mean Platelet Volume 9.7 fL (9.5-12.2); Monocytes # (A) 0.75 10*3/uL (0.20-1.00); Monocytes % (A) 9.5 %; Neutrophils # (A) 5.53 10*3/uL (1.80-7.70); Neutrophils % (A) 70.3 %; Platelet Count 245 10*3/uL (140-440); RBC 4.63 10*6/uL (4.10-5.20); RDW 15.9 % (11.5-14.5); WBC 7.86 10*3/uL (4.50-10.00)
[2024-11-22 07:33] LABS: INR 0.9 (<1.2); Partial Thromboplastin Time 24.6 sec (22.0-30.0); Prothrombin Time 10.3 sec (10.0-12.5)
--- NOTE | 2024-11-22 08:02 | XR ---
EXAMINATION TYPE: XR chest 2V DATE OF EXAM: 11/22/2024 7:21 AM COMPARISON: 01/14/2024 CLINICAL INDICATION: Female, 89 years old with history of difficulty breathing, TECHNIQUE: XR chest 2V view(s) obtained. FINDINGS: The heart size is normal. The pulmonary vasculature is normal. Left upper lobe mass measures 5.4 x 7.6 cm. Additional workup with CT is recommended.. Small hiatal hernia may be present. There is a radiopaque foreign body overlying the epigastric region. Mild scoliosis is present. IMPRESSION: 1. Left upper lobe mass. Additional workup with contrast CT is recommended [facility], , 11/22/2024 8:00 AM
[2024-11-22 08:07] LABS: ALT 11 U/L (4-34); AST 23 U/L (14-36); African American GFR (CKD) >90 (>60 ml/min/1.73 sqM); Albumin 3.7 g/dL (3.5-5.0); Alkaline Phosphatase 57 U/L (38-126); Anion Gap 6 mmol/L; Blood Urea Nitrogen 13 mg/dL (7-17); Calcium 9.2 mg/dL (8.4-10.2); Carbon Dioxide 29 mmol/L (22-30); Chloride 97 mmol/L (98-107); Glucose 99 mg/dL (74-99); Magnesium 1.9 mg/dL (1.6-2.3); Non-African American GFR(CKD) 86 (>60 ml/min/1.73 sqM); Potassium 4.3 mmol/L (3.5-5.1); Sodium 132 mmol/L (137-145); Total Bilirubin 0.5 mg/dL (0.2-1.3); Total Protein 6.7 g/dL (6.3-8.2)
[2024-11-22 08:08] LABS: Appearance,Urine Clear (Clear); Bacteria,Urine Rare /hpf; Bilirubin,Urine Negative (Negative); Blood,Urine Negative (Negative); Color,Urine Colorless; Glucose,Urine (UA) Negative (Negative); Ketones,Urine Negative (Negative); Leukocyte Esterase,Urine Moderate (Negative); Mucus,Urine Rare /hpf; Nitrite,Urine Negative (Negative); PH, Urine 6.5 (5.0-8.0); Protein,Urine Negative (Negative); RBC,Urine 1 /hpf (0-5); Specific Gravity,Urine 1.013 (1.001-1.035); Squamous Epithelial Cell,Urine <1 /hpf (0-4); Urobilinogen,Urine <2.0 mg/dL (<2.0); WBC,Urine 7 /hpf (0-5)
[2024-11-22 08:14] LABS: NT-Pro-B-Type Natriuretic Pept 859 pg/mL
[2024-11-22 08:42] LABS: Influenza A Not Detected (Not Detectd); Influenza B Not Detected (Not Detectd); RSV Not Detected (Not Detectd)
[2024-11-22] MEDS: DIPH,PERTUS(ACELL)TETVAC-LF 0.5 ML VIAL IM ONE (08:42)
--- NOTE | 2024-11-22 08:56 | CT ---
EXAMINATION TYPE: CT angio chest DATE OF EXAM: 11/22/2024 8:26 AM COMPARISON: None. CLINICAL INDICATION: Female, 89 years old with history of lung mass/sob, sob/lung mass, TECHNIQUE: CT of the chest is performed on a spiral scan at 2 mm thick sections. Study is performed with intravenous contrast timed for evaluation for pulmonary embolism. This will limit additional po rtions of the evaluation. 10mm MIP images reconstructed by the technologist are reviewed on the comp uter in the coronal and sagittal planes. Contrast used:60 mL of Isovue 370 with IV Contrast, (none if empty) Oral contrast used: (none if empty) CT DLP: 187.2 mGycm, Automated exposure control for dose reduction was used. FINDINGS: No persistent filling defects are evident to suggest an acute pulmonary embolism. There is some mild reflux of contrast into the distal inferior vena cava. Moderate emphysematous changes are present No mediastinal or hilar adenopathy enlarged by CT criteria is evident. The ascending aorta diameter at the level of the main pulmonary artery is 3.1 cm. The main pulmonary artery diameter at the bifurcation is 3.0 cm. Hiatal hernia is present There is a 4.3 x 4.2 cm mass in the left peripheral upper outer lung field. This extends to the hilum . No suspicious hilar or mediastinal nodes evident. There may be a subtle nodule within the anterolateral right lung measuring 0.5 cm. Image 42 No significant coronary artery calcifications. Limited CT sections were through the upper abdomen. Upper abdomen appears unremarkable. IMPRESSION: 1. Left upper lobe mass suspicious for neoplasm. Additional workup recommended. 2. No acute pulmonary embolism [facility], , 11/22/2024 8:54 AM
[2024-11-22] MEDS ORDERED: NALOXONE 0.4 MG/ML 1 ML VIAL IV PRN (10:39)
[2024-11-22] MEDS: IPRATROPIUM-ALBUTEROL 3 ML NEB INHALATION SCH (12:05)
--- NOTE | 2024-11-22 12:19 | P.HPIM ---
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 EMS was called, per chart review, patient was tripoding upon their arrival. Patient started feeling the symptoms several hours before arrival, she does have chronic cough with phlegm production, denies recent chills, fevers, chest pain. Also reported that her legs were giving out over the past several days, syncope. She had a fall without head trauma 2 days ago, was assisted to the floor. Family states that patient was able to ambulate, started using walker that was brought by friend On arrival she was afebrile with heart rate in 70s, BP soft 95/59, SpO2 90 on room air, was placed on 2 L nasal cannula with improvement up to 97%. Lab work significant for unremarkable CBC, coagulation panel, sodium low 132, normal potassium, creatinine, bicarb, liver enzymes, troponin negative, age- adjusted BNP negative, UA was obtained and was negative for UTI, Cepheid negative. Chest x-ray showed sinus rhythm QTc 400, no ST elevation. Chest x-ray reviewed personally, there was a left upper lobe mass noted. CT chest performed and showed no mediastinal and hilar adenopathy, 4.3 x 4.2 cm mass in the left. Referral upper outer lung field extending to the helium. Patient will be admitted for observation, hypoxic respiratory failure secondary to COPD, pulmonology consulted. Pertinent positives and negatives as discussed in HPI, a complete review of s ystems was performed and all other systems are negative. Patient seen and examined at bedside. Vital signs reviewed General: Not in distress, no conversational dyspnea or accessory muscle use, appears underweight Derm: warm, dry Head: atraumatic, normocephalic, symmetric Eyes: EOMI, no lid lag, anicteric sclera, pupils equal round reactive to light ENT: Nose and ears atraumatic Neck: No thyromegaly, supple Mouth: no lip lesion, mucus membranes moist Cardiovascular: S1S2 reg, no murmur, no edema Lungs: Bilateral wheezing Abdominal: soft, nontender to palpation, no guarding, no appreciable o rganomegaly Ext: no gross muscle atrophy, muscle strength muscle strength 5 out of 5 in all 4 extremities, no contractures Neuro: CN II-XII grossly intact, legally blind Psych: Alert, oriented, appropriate affect Assessment/Plan: Acute hypoxic respiratory failure secondary to COPD exacerbation Left upper lobe mass in a patient with history of known lung who declines treatmenth -Pulmonology consulted, patient recommendations -Continue with supplemental oxygen, wean off as tolerated -Will reassess need for home oxygen -Continue Solu-Medrol 40 mg IV every 8 hours -Scheduled DuoNebs every 6 hours -PT OT -Readdress goals of care discussion should patient's condition remains unchanged on current treatment Current smoker: Used to smoke 1 and half pack a day, currently 1 pack a day, recommend smoking cessation Alzheimer's Legally blind The patient is admitted with an anticipated [less than 2 midnight stay as observation status for evaluation of hypoxic respiratory failure secondary to C OPD. CODE STATUS: No code DVT prophylaxis: Lovenox Anticipated discharge date: TBD Anticipated discharge place: [facility] A total of 40 minutes was spent on the care of this complex patient more than 50% of the time was spent in counseling and care coordination. Past Medical History Past Medical History: COPD Additional Past Medical History / Comment(s): OTHER HX: CHRONIC BACK PAIN. History of Any Multi-Drug Resistant Organisms: None Reported Past Surgical History: Tonsillectomy, Tubal Ligation Past Anesthesia/Blood Transfusion Reactions: No Reported Reaction Additional Past Anesthesia/Blood Transfusion Reaction / Comment(s): NEVER RECIEVED BLOOD. Past Psychological History: No Psychological Hx Reported Smoking Status: Current every day smoker Past Alcohol Use History: None Reported Past Drug Use History: None Reported - Past Family History Father Additional Family Medical History / Comment(s): FATHER HAD A HEART MURMUR. HE IN HIS MID 60'S. Mother Family Medical History: Congestive Heart Failure (CHF), Dementia, Myocardial Infarction ([place]) Additional Family Medical History / Comment(s): MOTHER IN HER MID 60'S. Medications and Allergies Home Medications Medication Instructions Recorded Confirmed Type Ipratropium-Albuterol Nebulize 3 ml INHALATION RT-QID 07/03/14 11/22/24 History [Duoneb 0.5 mg-3 mg/3 ml Soln] predniSONE [Deltasone] 40 mg PO DAILY 5 Days #10 tab 11/22/24 Rx Allergies Allergy/AdvReac Type Severity Reaction Status Date / Time No Known Allergies Allergy Verified 11/22/24 09:41 Physical Exam Vitals: Vital Signs Temp Pulse Resp BP Pulse Ox 11/22/24 10:00 97.8 F 76 16 95/59 97 11/22/24 09:07 82 11/22/24 08:57 80 11/22/24 08:31 18 94 L 11/22/24 08:30 90 L 11/22/24 08:25 20 95 11/22/24 07:03 84 11/22/24 06:53 80 11/22/24 06:46 24 11/22/24 06:37 97.1 F L 94 24 110/85 98 Intake and Output 11/21/24 11/22/24 11/22/24 22:59 06:59 14:59 Other: Weight 47.627 kg Results CBC & Chem 7: 11/22/24 06:54 11/22/24 06:54 Labs: Abnormal Lab Results - Last 24 Hours (Table) 11/22/24 11/22/24 Range/Units 06:54 06:54 Sodium 132 L (137-145) mmol/L Chloride 97 L (98-107) mmol/L Ur Leukocyte Esterase Moderate H (Negative) Urine WBC 7 H (0-5) /hpf Urine Bacteria Rare H (None) /hpf Urine Mucus Rare H (None) /hpf
[2024-11-22] MEDS: SODIUM CHLORIDE 0.9% 1,000 ML IV SCH (13:08)
--- NOTE | 2024-11-22 14:10 | P.CNPUL ---
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 She was brought into the emergency room early this morning after waking up feeling very short of breath, weak and had recently been sustaining falls at home. Stating that her legs give out. Chest x-ray reveals a 5.4 x 7.6 cm left upper lobe mass. CT angiogram reveals the same mass in the left peripheral upper outer lung field. This extends to the hilum. No suspicious hilar mediastinal nodes evident. No acute pulmonary embolism. Count 7.8. Hemoglobin 12.6. Platelets 245. Sodium 132. Potassium 4.3. Bicarb 29. BUN 13. Creatinine 0.53. Glucose 99. Troponin negative x 1. proBNP 859. Urinalysis clean. Viral screen negative. She is seen today in consultation in the emergency department. She is currently resting on a stretcher. She is very frail and cachectic appearing. She is maintaining O2 saturations in the upper 90s on 2 L/min per nasal cannula. She is afebrile. Hemodynamically stable. Her daughter is at the bedside providing most of the information. Review of Systems REVIEW OF SYSTEMS: CONSTITUTIONAL: Positive for generalized weakness, falls. Denies any recent significant weight loss or weight gain. EYES: Denies change in vision. EARS, NOSE, MOUTH, THROAT: Denies headaches, denies sore throat. CARDIOVASCULAR: Denies chest pain, palpitations or syncopal episodes. RESPIRATORY: Positive for shortness of breath, no cough, congestion or hemoptysis. GASTROINTESTINAL: Denies change in appetite, denies abdominal pain GENITOURINARY: Denies hematuria, denies infections. MUSKULOSKELETAL: Denies pain, denies swelling. INTEGUMENTARY: Denies rash, denies eczema. NEUROLOGICAL: Denies recent memory loss, no recent seizure activity. PSYCHIATRIC: Denies anxiety, denies depression. HEMATOLOGIC/LYMPHATIC: Denies anemia, denies enlarged lymph nodes. Past Medical History Past Medical History: COPD Additional Past Medical History / Comment(s): OTHER HX: CHRONIC BACK PAIN. History of Any Multi-Drug Resistant Organisms: None Reported Past Surgical History: Tonsillectomy, Tubal Ligation Past Anesthesia/Blood Transfusion Reactions: No Reported Reaction Additional Past Anesthesia/Blood Transfusion Reaction / Comment(s): NEVER RECIEVED BLOOD. Past Psychological History: No Psychological Hx Reported Smoking Status: Current every day smoker Past Alcohol Use History: None Reported Past Drug Use History: None Reported - Past Family History Father Additional Family Medical History / Comment(s): FATHER HAD A HEART MURMUR. HE IN HIS MID 60'S. Mother Family Medical History: Congestive Heart Failure (CHF), Dementia, Myocardial Infarction (CO) Additional Family Medical History / Comment(s): MOTHER IN HER MID 60'S. Medications and Allergies Home Medications Medication Instructions Recorded Confirmed Type Ipratropium-Albuterol Nebulize 3 ml INHALATION RT-QID 07/03/14 11/22/24 History [Duoneb 0.5 mg-3 mg/3 ml Soln] predniSONE [Deltasone] 40 mg PO DAILY 5 Days #10 tab 11/22/24 Rx Allergies Allergy/AdvReac Type Severity Reaction Status Date / Time No Known Allergies Allergy Verified 11/22/24 09:41 Physical Exam Vitals: Vital Signs Temp Pulse Resp BP Pulse Ox 11/22/24 12:17 80 11/22/24 12:05 79 11/22/24 10:00 97.8 F 76 16 95/59 97 11/22/24 09:07 82 11/22/24 08:57 80 11/22/24 08:31 18 94 L 11/22/24 08:30 90 L 11/22/24 08:25 20 95 11/22/24 07:03 84 11/22/24 06:53 80 11/22/24 06:46 24 11/22/24 06:37 97.1 F L 94 24 110/85 98 Intake and Output 11/21/24 11/22/24 11/22/24 22:59 06:59 14:59 Other: Weight 47.627 kg GENERAL EXAM: Alert, weak, frail thin 89-year-old female, on 2 L nasal cannula, fairly comfortable in no apparent distress. HEAD: Normocephalic. EYES: Normal reaction of pupils, equal size. NOSE: Clear with pink turbinates. THROAT: No erythema or exudates. NECK: No masses, no JVD. CHEST: No chest wall deformity. LUNGS: Equal air entry with no crackles, wheeze, rhonchi or dullness. CVS: S1 and S2 normal with no audible murmur, regular rhythm. ABDOMEN: No hepatosplenomegaly, normal bowel sounds, no guarding or rigidity. SPINE: No scoliosis or deformity SKIN: No rashes CENTRAL NERVOUS SYSTEM: No focal deficits, tone is normal in all 4 extremities. EXTREMITIES: There is no peripheral edema. No clubbing, no cyanosis. Peripheral pulses are intact. 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 Patient had declined any treatment Chronic and ongoing tobacco dependence for nearly 60 years Osteoporosis Anorexia/cachexia syndrome, current BMI 19.8 kg/m Legally blind Plan: The patient was seen and evaluated Imaging, labs and medications reviewed Currently stable on 2 L nasal cannula Initiate DuoNeb inhalations Initiate Symbicort Initiate Solu-Medrol Lovenox for DVT prophylaxis Normal saline at 50 mL/h Prognosis remains poor DNR CODE STATUS Plan of care was discussed with the patient and her daughter who is at the bedside We will continue to follow and make further recommendations based on her clinical status I have personally seen and examined the patient, performed the documentation and the assessment and plan as written. Number of minutes spent on the visit: 20 Dictation was produced using [id number] software. Please excuse any grammatical, word or spelling errors. Time with Patient: Greater than 30
--- NOTE | 2024-11-22 15:08 | CT ---
EXAMINATION TYPE: CT brain wo con DATE OF EXAM: 11/22/2024 2:19 PM COMPARISON: None. CLINICAL INDICATION: Female, 89 years old with history of Weakness falls, lung cancer, Weakness, fall s, lung cancer TECHNIQUE: Brain: Axial CT images of the brain were obtained with coronal and sagittal reformats created and rev iewed. Contrast used: None. Oral contrast used: None. CT DLP: 1170.4 mGycm, Automated exposure control for dose reduction was used. FINDINGS: Brain: Large left occipital peripherally enhancing centrally necrotic mass measuring 5.4 x 3.6 x 4.3 cm (28- 60). Mass abuts the adjacent falx and there is significant surrounding vasogenic edema in the left oc cipital, left parietal and left temporal lobes with associated mass effect on the left lateral ventri dandre. No additional enhancing lesions identified. No evidence of significant midline shift or uncal he rniation at this time. No sizable extra-axial fluid collection. No depressed calvarial fracture. Para nasal sinuses and mastoid air cells appear patent. IMPRESSION: Large peripherally enhancing thick-walled intracranial mass in the left occipital lobe measuring 5.4 x 3.6 x 4.3 cm with significant surrounding vasogenic edema. 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 Other less likely differential diagnostic considerations would include metastatic diseas e and abscess. Recommend more definitive evaluation with brain MRI utilizing IV contrast and neurosur gical consultation. [facility], , 11/22/2024 3:06 PM
[2024-11-22] MEDS ORDERED: methylPREDNISolone SOD SUCCI 40 MG/ML 1 ML VIAL IV SCH (16:00)
[2024-11-22] MEDS ORDERED: methylPREDNISolone SOD SUCCIN 40 MG in SODIUM CHLORIDE 0.9% 100 ML IVPB SCH (16:00)
[2024-11-22] MEDS: DEXAMETHASONE SOD PHOSPHATE 4 MG/ML 1 ML VIAL IVP SCH (16:36)
[2024-11-23 08:06] LABS: African American GFR (CKD) >90 (>60 ml/min/1.73 sqM); Anion Gap 4 mmol/L; Blood Urea Nitrogen 14 mg/dL (7-17); Calcium 8.9 mg/dL (8.4-10.2); Carbon Dioxide 27 mmol/L (22-30); Chloride 99 mmol/L (98-107); Glucose 132 mg/dL (74-99); Non-African American GFR(CKD) >90 (>60 ml/min/1.73 sqM); Potassium 4.8 mmol/L (3.5-5.1); Sodium 130 mmol/L (137-145)
[2024-11-23] MEDS: ENOXAPARIN 30 MG/0.3 ML SYRINGE SQ SCH (08:37)
--- NOTE | 2024-11-23 10:31 | P.PN ---
Subjective Progress Note Date: 11/23/24 Hospital Course: Patient is a 89-year-old female with past medical history of COPD not on home oxygen however it was recommended by her dye expert, history of lung cancer declined treatment, current smoker, who presented to the ER on 11/22 with SOB. EMS was called, per chart review, patient was tripoding upon their arrival. Patient started feeling the symptoms several hours before arrival, she does have chronic cough with phlegm production, denies recent chills, fevers, chest pain. Also reported that her legs were giving out over the past several days, syncope. She had a fall without head trauma 2 days ago, was assisted to the floor. Family states that patient was able to ambulate, started using walker that was brought by friend On arrival she was afebrile with heart rate in 70s, BP soft 95/59, SpO2 90 on room air, was placed on 2 L nasal cannula with improvement up to 97%. Lab work significant for unremarkable CBC, coagulation panel, sodium low 132, normal potassium, creatinine, bicarb, liver enzymes, troponin negative, age- adjusted BNP negative, UA was obtained and was negative for UTI, Cepheid negative. Chest x-ray reviewed personally, there was a left upper lobe mass noted. CT chest performed and showed no mediastinal and hilar adenopathy, 4.3 x 4.2 cm mass in the left. Referral upper outer lung field extending to the helium. Patient will be admitted for observation, hypoxic respiratory failure secondary to COPD, pulmonology consulted. 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 Patient and her family were notified on the above results. We discussed management options, family states that patient would not want any invasive procedure for diagnostic or treatment options. She previously refused diagnosed cancer treatment. Family is interested in hospice and would like her to be discharged home with hospice. In the meantime they are considering comfort measures only and would like to discuss it with the rest of the family and let the medical team know. Patient was started on Decadron 4 mg every 4 hour while awaiting final decision from the family Subjective: Complains of ongoing shortness of breath, that improved, otherwise did not express any concerns Pertinent positives and negatives as discussed above, a complete review of systems was performed and all other systems are negative. Vitals Signs Reviewed. General: Not in distress, no conversational dyspnea or accessory muscle use, appears cachectic Derm: warm, dry Head: atraumatic, normocephalic, symmetric Eyes: EOMI, no lid lag, anicteric sclera, pupils equal round reactive to light ENT: Nose and ears atraumatic Neck: No thyromegaly, supple Mouth: no lip lesion, mucus membranes moist Cardiovascular: S1S2 reg, no murmur, no edema Lungs: No wheezing on exam today Abdominal: soft, nontender to palpation, no guarding, no appreciable organomegaly Ext: no gross muscle atrophy, muscle strength muscle strength 3 out of 5 in all 4 extremities, no contractures Neuro: CN II-XII grossly intact, legally blind Psych: Alert, oriented, appropriate affect Data Reviewed Today: Pertinent Labs: Sodium 130, normal potassium, chloride, creatinine 0.45, glucose 132 Assessment and Plan:Acute hypoxic respiratory failure secondary to COPD exacerbation Left upper lobe mass in a patient with history of known lung who declines treatmenth -Pulmonology consulted, patient recommendations -Continue with supplemental oxygen -Continue Solu-Medrol 40 mg IV every 8 hours -Scheduled DuoNebs every 6 hours -home with hospice at / intracranial mass in the left occipital lobe with significant surrounding vasogenic edema, likely primary brain malignancy --home with hospice at d/ Current smoker: Used to smoke 1 and half pack a day, currently 1 pack a day Alzheimer's Legally blind CODE STATUS: No code DVT prophylaxis: Lovenox Anticipated discharge date: 11/[address]: Home with hospice Objective - Vital Signs Vital signs: Vital Signs Temp 96.7 F L 11/23/24 08:00 Pulse 98 11/23/24 09:00 Resp 16 11/23/24 08:00 BP 108/61 11/23/24 08:00 Pulse Ox 98 11/23/24 08:51 FiO2 Intake & Output 11/22/24 11/23/24 11/23/24 18:59 06:59 18:59 Weight 47.627 kg Other: Voiding Method Bedside Commode Incontinent Incontinent # Voids 1 2 - Labs CBC & Chem 7: 11/22/24 06:54 11/23/24 06:39 Labs: Abnormal Lab Results - Last 24 Hours (Table) 11/23/24 Range/Units 06:39 Sodium 130 L (137-145) mmol/L Creatinine 0.45 L (0.52-1.04) mg/dL Glucose 132 H (74-99) mg/dL
--- NOTE | 2024-11-23 11:01 | P.PN ---
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 She was brought into the emergency room early this morning after waking up feeling very short of breath, weak and had recently been sustaining falls at home. Stating that her legs give out. Chest x-ray reveals a 5.4 x 7.6 cm left upper lobe mass. CT angiogram reveals the same mass in the left peripheral upper outer lung field. This extends to the hilum. No suspicious hilar mediastinal nodes evident. No acute pulmonary embolism. Count 7.8. Hemoglobin 12.6. Platelets 245. Sodium 132. Potassium 4.3. Bicarb 29. BUN 13. Creatinine 0.53. Glucose 99. Troponin negative x 1. proBNP 859. Urinalysis clean. Viral screen negative. She is seen today in consultation in the emergency department. She is currently resting on a stretcher. She is very frail and cachectic appearing. She is maintaining O2 saturations in the upper 90s on 2 L/min per nasal cannula. She is afebrile. Hemodynamically stable. Her daughter is at the bedside providing most of the information. The patient is seen today November 23, 2024 in follow-up on the regular medical floor. She is currently resting in bed. She is somewhat difficult to arouse but arousable. She is maintaining O2 saturations in the high 90s on 2 L/min per nasal cannula. She is afebrile. Hemodynamically stable. Sodium 130. Potassium 4.8. Bicarb 27. BUN 14. Creatinine 0.45. Glucose 132. She remains on DuoNeb inhalations, Decadron 4 mg IV push every 4 hours. Lovenox for DVT prophylaxis. CT scan of the brain did show a large peripherally enhancing thick-walled intracranial mass in the left occipital lobe measuring 5 x 3 x 4 with significant surrounding vasogenic edema. Most likely malignancy/metastasis. The patient's daughter is at the bedside and aware of the CT scan of the brain report. They are considering hospice. Objective - Vital Signs Vital signs: Vital Signs Temp 96.7 F L 11/23/24 08:00 Pulse 98 11/23/24 09:00 Resp 16 11/23/24 08:00 BP 108/61 11/23/24 08:00 Pulse Ox 98 11/23/24 08:51 FiO2 Intake & Output 11/22/24 11/23/24 11/23/24 18:59 06:59 18:59 Weight 47.627 kg Other: Voiding Method Bedside Commode Incontinent Incontinent # Voids 1 2 - Exam GENERAL EXAM: Arousable, weak, frail 89-year-old female, on 2 L nasal cannula, in no apparent distress. HEAD: Normocephalic. EYES: Normal reaction of pupils, equal size. NOSE: Clear with pink turbinates. THROAT: No erythema or exudates. NECK: No masses, no JVD. CHEST: No chest wall deformity. LUNGS: Equal air entry with no crackles, wheeze, rhonchi or dullness. CVS: S1 and S2 normal with no audible murmur, regular rhythm. ABDOMEN: No hepatosplenomegaly, normal bowel sounds, no guarding or rigidity. SPINE: No scoliosis or deformity SKIN: No rashes CENTRAL NERVOUS SYSTEM: No focal deficits, tone is normal in all 4 extremities. EXTREMITIES: There is no peripheral edema. No clubbing, no cyanosis. Peripheral pulses are intact. - Labs CBC & Chem 7: 11/22/24 06:54 11/23/24 06:39 Labs: Abnormal Lab Results - Last 24 Hours (Table) 11/23/24 Range/Units 06:39 Sodium 130 L (137-145) mmol/L Creatinine 0.45 L (0.52-1.04) mg/dL Glucose 132 H (74-99) mg/dL Assessment and Plan Assessment: Acute hypoxic respiratory failure secondary to an acute exacerbation of chronic obstructive pulmonary disease Altered mental status, weakness and falls. CT scan of the brain did show a large peripherally enhancing thick-walled intracranial mass in the left occipital lobe measuring 5 x 3 x 4 with significant surrounding vasogenic edema. Most likely malignancy/metastasis. 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 Patient had declined any treatment Chronic and ongoing tobacco dependence for nearly 60 years Osteoporosis Anorexia/cachexia syndrome, current BMI 19.8 kg/m Legally blind Plan: The patient was seen and evaluated Imaging, labs and medications reviewed Large brain mass on CT scan Family is at the bedside and aware They are considering hospice Continued on bronchodilators Normal saline at 50 mL/h I have personally seen and examined the patient, performed the documentation and the assessment and plan as written. Number of minutes spent on the visit: 10 Dictation was produced using [employer] dictation software. Please excuse any grammatical, word or spelling errors.
[2024-11-24 07:48] VITALS: RESP 17
[2024-11-24 12:35] VITALS: BP 112/68; TEMP 98
--- NOTE | 2024-11-24 12:43 | P.PN ---
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 She was brought into the emergency room early this morning after waking up feeling very short of breath, weak and had recently been sustaining falls at home. Stating that her legs give out. Chest x-ray reveals a 5.4 x 7.6 cm left upper lobe mass. CT angiogram reveals the same mass in the left peripheral upper outer lung field. This extends to the hilum. No suspicious hilar mediastinal nodes evident. No acute pulmonary embolism. Count 7.8. Hemoglobin 12.6. Platelets 245. Sodium 132. Potassium 4.3. Bicarb 29. BUN 13. Creatinine 0.53. Glucose 99. Troponin negative x 1. proBNP 859. Urinalysis clean. Viral screen negative. She is seen today in consultation in the emergency department. She is currently resting on a stretcher. She is very frail and cachectic appearing. She is maintaining O2 saturations in the upper 90s on 2 L/min per nasal cannula. She is afebrile. Hemodynamically stable. Her daughter is at the bedside providing most of the information. The patient is seen today November 23, 2024 in follow-up on the regular medical floor. She is currently resting in bed. She is somewhat difficult to arouse but arousable. She is maintaining O2 saturations in the high 90s on 2 L/min per nasal cannula. She is afebrile. Hemodynamically stable. Sodium 130. Potassium 4.8. Bicarb 27. BUN 14. Creatinine 0.45. Glucose 132. She remains on DuoNeb inhalations, Decadron 4 mg IV push every 4 hours. Lovenox for DVT prophylaxis. CT scan of the brain did show a large peripherally enhancing thick-walled intracranial mass in the left occipital lobe measuring 5 x 3 x 4 with significant surrounding vasogenic edema. Most likely malignancy/metastasis. The patient's daughter is at the bedside and aware of the CT scan of the brain report. They are considering hospice. The patient is seen today November 24, 2024 and follow-up on the regular medical floor. She is a bit more awake and alert today. Taking sips of coffee. Maintaining O2 saturations in the upper 90s on 3 L/min per nasal cannula. She is afebrile. Hemodynamically stable. No new labs today. She is continued on Decadron 1 mg IVP every 4 hours. Lovenox for DVT prophylaxis. Remains on bronchodilators. Objective - Vital Signs Vital signs: Vital Signs Temp 98 F 11/24/24 12:11 Pulse 84 11/24/24 12:11 Resp 17 11/24/24 12:11 BP 112/68 11/24/24 12:11 Pulse Ox 99 11/24/24 12:11 FiO2 Intake & Output 11/23/24 11/24/24 11/24/24 18:59 06:59 18:59 Other: Voiding Method Incontinent Incontinent Incontinent # Voids 1 1 # Bowel Movements 1 - Exam GENERAL EXAM: Awake, weak, frail 89-year-old female, on 3 L nasal cannula, in no apparent distress. HEAD: Normocephalic. EYES: Normal reaction of pupils, equal size. NOSE: Clear with pink turbinates. THROAT: No erythema or exudates. NECK: No masses, no JVD. CHEST: No chest wall deformity. LUNGS: Equal air entry with no crackles, wheeze, rhonchi or dullness. CVS: S1 and S2 normal with no audible murmur, regular rhythm. ABDOMEN: No hepatosplenomegaly, normal bowel sounds, no guarding or rigidity. SPINE: No scoliosis or deformity SKIN: No rashes CENTRAL NERVOUS SYSTEM: No focal deficits, tone is normal in all 4 extremities. EXTREMITIES: There is no peripheral edema. No clubbing, no cyanosis. Pe ripheral pulses are intact. - Labs CBC & Chem 7: 11/22/24 06:54 11/23/24 06:39 Assessment and Plan Assessment: Acute hypoxic respiratory failure secondary to an acute exacerbation of chronic obstructive pulmonary disease Altered mental status, weakness and falls. CT scan of the brain did show a large peripherally enhancing thick-walled intracranial mass in the left occipital lobe measuring 5 x 3 x 4 with significant surrounding vasogenic edema. Most likely malignancy/metastasis. 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 Patient had declined any treatment Chronic and ongoing tobacco dependence for nearly 60 years Osteoporosis Anorexia/cachexia syndrome, current BMI 19.8 kg/m Legally blind Plan: The patient was seen and evaluated Medications reviewed She remains on Decadron Remains on oxygen at 3 L/min per nasal cannula Continued on bronchodilator Lovenox for DVT prophylaxis Her daughter is at the bedside They are considering hospice Social work is following This patient was seen independently by the pulmonary nurse practitioner addressing pulmonary issues I have personally seen and examined the patient, performed the documentation and the assessment and plan as written. Number of minutes spent on the visit: 24 Dictation was produced using [employer] dictation software. Please excuse any grammatical, word or spelling errors.
--- NOTE | 2024-11-24 15:13 | P.DS ---
Providers Date of admission: 11/22/24 10:42 Expected date of discharge: 11/24/24 Attending physician: Xavier Ribeiro Consults: 11/22/24 10:39 Consult Physician Urgent Consulting Provider: Olivia Moreno Consult Reason/Comments: COPD Do you want consulting provider notified?: Yes Primary care physician: 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 EMS was called, per chart review, patient was tripoding upon their arrival. Patient started feeling the symptoms several hours before arrival, she does have chronic cough with phlegm production, denies recent chills, fevers, chest pain. She had a fall without head trauma 2 days ago, assisted to the floor. In the ED she underwent extensive evaluation. BP 110/85, HR 94, T 97.1F, RR 24, 98% on 3L NC. CBC, Coag panel, CMP significant for Na 132, Cl 97. Trop < 0.012. BNP 859. Mag 1.9. Lactic acid 1.2. UA mod LE with 7 WBCs. COVID, RSV, Flu neg. EKG showed sinus rhythm QTc 400, no ST elevation. CT chest performed and showed no mediastinal and hilar adenopathy, 4.3 x 4.2 cm mass in the left lung. Patient was started on SoluMedrol and bronchodilators. Pulmonary was consulted. 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 Patient and family agreeable for Hospice. 11/24 Patient was seen and examined. No complaints. Plans on discharge to hospice house today. General: toxic, no distress, appears older than stated age Derm: warm, dry Head: atraumatic, normocephalic, symmetric Mouth: no lip lesion, mucus membranes moist Cardiovascular: good distal perfusion in all 4 extremities Lungs: breathing comfortably, no accessory muscle use Ext: no gross muscle atrophy, no edema, no contractures Neuro: No focal neurologic deficits. Psych: Alert and oriented. 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 Patient Condition at Discharge: Poor Plan - Discharge Summary New Discharge Prescriptions: New predniSONE [Deltasone] 40 mg PO DAILY 5 Days #10 tab Continue Ipratropium-Albuterol Nebulize [Duoneb 0.5 mg-3 mg/3 ml Soln] 3 ml INHALATION RT-QID Discharge Medication List Ipratropium-Albuterol Nebulize [Duoneb 0.5 mg-3 mg/3 ml Soln] 3 ml INHALATION RT-QID 07/03/14 [History] predniSONE [Deltasone] 40 mg PO DAILY 5 Days #10 tab 11/22/24 [Rx] Follow up Appointment(s)/Referral(s): Aline Degroot MD [Primary Care Provider] - 1-2 days Patient Instructions/Handouts: COPD (Chronic Obstructive Pulmonary Disease) (ED) Activity/Diet/Wound Care/Special Instructions: Continue using neubulizer and inhaler as prescribed. Follow-up with Dr. Degroot early next week. Return to the ER for any new or worsening symptoms. [facility]charge [facility]
[2024-11-24 16:06] VITALS: PULSE 94
[2024-11-24] MEDS: CALCIUM CARBONATE 500 MG CHEWABLE PO PRN (18:23)
== END 2024-11-24 18:52 | disposition hospice, inpatient (51) | DRG 189 ==
LOC: EC 06:35 → 5NMEDONC 10:41 → OBSVTOIN 10:42 → 5NMEDONC 10:51
PROVIDERS: ADMIT Student in an Organized Health Care Education/Training Program; ATTEND Student in an Organized Health Care Education/Training Program
DX: J96.01 Acute respiratory failure with hypoxia (principal); G93.6 Cerebral edema; E43 Unspecified severe protein-calorie malnutrition; R64 Cachexia; E22.2 Syndrome of inappropriate secretion of antidiuretic hormone; C34.12 Malignant neoplasm of upper lobe, left bronchus or lung; Z66 Do not resuscitate; C71.9 Malignant neoplasm of brain, unspecified; Z51.5 Encounter for palliative care; J44.1 Chronic obstructive pulmonary disease with (acute) exacerbation; G30.9 Alzheimer's disease, unspecified; Z68.1 Body mass index [BMI] 19.9 or less, adult; F02.80 Dementia in other diseases classified elsewhere, unspecified severity, without behavioral disturbance, psychotic disturbance, mood disturbance, and anxiety; R54 Age-related physical debility; H54.8 Legal blindness, as defined in USA; F17.210 Nicotine dependence, cigarettes, uncomplicated; M81.0 Age-related osteoporosis without current pathological fracture; R29.6 Repeated falls; G89.29 Other chronic pain; M54.9 Dorsalgia, unspecified; Z53.29 Procedure and treatment not carried out because of patient's decision for other reasons; Z20.822 Contact with and (suspected) exposure to COVID-19; Z79.51 Long term (current) use of inhaled steroids
CPT/HCPCS: 36415; 70450; 71046; 71275; 80048; 80053; 81001; 83605; 83735; 83880; 84484; 85025; 85610; 85730; 87636; 90471; 90715; 93005; 94640; 94760; 99285